=== PATIENT | male | born 1970 | race Caucasian/White ===

== ENCOUNTER 2018-04-08 19:49 | Emergency (ER) | payer BC ==
[2018-04-08] MEDS ORDERED: Lidocaine 1% PF 5 ML VIAL ONE (20:07)
[2018-04-08] MEDS ORDERED: Adacel (T-DAP) 0.5 ML SYRINGE ONE (20:29)
[2018-04-08] MEDS ORDERED: Bacitracin Zinc 1 Packet ONE (20:36)
== END 2018-04-08 20:55 | disposition home or self-care (01) ==
LOC: SCSER 19:49
DX: S61.216A Laceration without foreign body of right little finger without damage to nail, initial encounter (principal); W45.8XXA Other foreign body or object entering through skin, initial encounter
CPT/HCPCS: 12001; 90471; 90715; J2001

== ENCOUNTER 2018-04-17 11:11 | Emergency (ER) | payer BC | END 2018-04-17 11:21 | disposition home or self-care (01) | LOC: SCSER 11:11 | DX: S61.210D Laceration without foreign body of right index finger without damage to nail, subsequent encounter (principal); X58.XXXD Exposure to other specified factors, subsequent encounter ==